=== PATIENT | female | born 1975 | race Caucasian/White ===

== ENCOUNTER 2020-02-18 21:56 | Emergency (ER) | payer MEDICAID ==
[~2020-02-18] VITALS: Ht 167.6 cm; Wt 90.3 kg
[2020-02-18 22:00] VITALS: BP 132/72
--- NOTE | 2020-02-18 22:05 | NUR ---
SEEN AND EXAMINED BY KARTHIK WITH ORDERS AND CARRIED OUT.
[2020-02-18] MEDS ORDERED: KETOROLAC 60 MG/2 ML VIAL IM ONE (22:10)
--- NOTE | 2020-02-18 22:11 | NUR ---
PT TAKEN TO BED 5
--- NOTE | 2020-02-18 22:14 | NUR ---
45 Y/O FEMALE C/O RT WRIST PAIN. S/P HEAVY LIFTING WATER BOTTLE PACK YESTERDAY. PT STATES CONTINUOS 8/10 THROBBING PAIN. PT STATES SHE UNABLE TO MOVE HER WRIST. TOOK IBUPROFEN AT 4PM TODAY WITH NO RELIEF. SKIN WARM AND DRY. SWELLING NOTED. NO BRUISING NOTED. MEDHX: BENNYIES GRANT
--- NOTE | 2020-02-18 22:15 | NUR ---
XRAY AT BEDSIDE
--- NOTE | 2020-02-18 22:45 | NUR ---
PTS RIGHT HAND WAS PLACED IN A THUMB SPICA VELCRO SPLINT. PTS [facility] [place] WNL.
[2020-02-18 22:48] VITALS: BP 132/72
== END 2020-02-18 22:48 | disposition home or self-care (01) ==
LOC: MED 21:56
DX: S63.501A Unspecified sprain of right wrist, initial encounter (principal); X50.0XXA Overexertion from strenuous movement or load, initial encounter; Y93.89 Activity, other specified; Y92.89 Other specified places as the place of occurrence of the external cause; Y99.8 Other external cause status
CPT/HCPCS: 29125; 73110; 96372; 99283; J1885